=== PATIENT | male | born 1995 ===

== ENCOUNTER 2017-07-26 23:01 | Emergency (ER) | payer OTHER ==
[2017-07-27 05:33] VITALS: BP 124/77
--- NOTE | 2017-07-29 20:26 | ED ---
Jose E Dill Sixian, scribed for German Brooks MD on 07/27/17 at 0205 . Substance Abuse/Use - HPI Summary HPI Summary: HPI is limited due to intoxication. This patient is a 22 year old M BIBA to ED with a chief complaint of EtOH intoxication since 0 yesterday. - History Of Current Complaint Chief Complaint: EDSubstanceAbuse Stated Complaint: ETOH Time Seen by Provider: 07/26/17 23:16 Hx Obtained From: EMS - Allergies/Home Medications Allergies/Adverse Reactions: Allergies Allergy/AdvReac Type Severity Reaction Status Date / Time No Known Allergies Allergy Verified 07/26/17 23:15 Home Medications: Home Medications NK [No Home Medications Reported] 07/26/17 [History Confirmed 07/26/17] PMH/Surg Hx/FS Hx/Imm Hx Sensory History: Denies: Hx Legally Blind, Hx Deafness Infectious Disease History: No Infectious Disease History: Denies: Traveled Outside the [place] in Last 30 Days - Family History Known Family History: Positive: Unknown - pt is intoxicated - Social History Occupation: Student Alcohol Use: Weekly Substance Use Type: Reports: Other Substance Use Comment - Amount & Last Used: susan Smoking Status (MU): Light Every Day Tobacco Smoker - Additional Comments History Additional Comments: PMH is limited due to intoxication. Review of Systems - ROS Summary Review of Systems Summary: ROS is limited due to intoxication. Positive: Slurred Speech All Other Systems Reviewed And Are Negative: No Physical Exam - Summary Physical Exam Summary: PE is limited due to intoxication. Appearance: Well-appearing, Well-nourished, lying in bed comfortably Skin: Warm, dry, no obvious rash Eyes: sclera anicteric, no conjunctiva pallor ENT: mucous membranes moist, pharynx appears normal Neck: Supple, nontender Respiratory: Clear to auscultation, no signs of respiratory distress Cardiovascular: Normal S1, S2. No murmurs. Normal distal pulses in tibial and radial bilaterally. Abdomen: Soft, nontender, normal active bowel sounds present Musculoskeletal: Normal, Strength/ROM Intact Neurological: A&Ox3, slurred speech Psychiatric: affect is normal, does not appear anxious or depressed Triage Information Reviewed: Yes Vital Signs On Initial Exam: Initial Vitals Pulse Pulse Ox 64 90 07/26/17 23:11 07/26/17 23:11 Vital Signs Reviewed: Yes Diagnostics - Vital Signs Vital Signs Temp Pulse Resp BP Pulse Ox 07/27/17 00:00 68 23 96 07/26/17 23:45 65 17 95/58 94 07/26/17 23:15 61 101/65 96 07/26/17 23:13 97.2 F 76 16 147/70 95 07/26/17 23:11 64 90 - Laboratory Lab Statement: Any lab studies that have been ordered have been reviewed, and results considered in the medical decision making process. Course/Dx - Diagnoses Provider Diagnoses: Alcohol intoxication delirium Discharge - Sign-Out/Discharge Documenting (check all that apply): Discharge/Admit/Transfer - Discharge Plan Condition: Improved Disposition: HOME Patient Education Materials: Abuse of Alcohol (ED) Referrals: [facility] - Venkatesh HUERTA [Primary Care Provider] - Additional Instructions: RETURN TO THE EMERGENCY DEPARTMENT FOR CHANGING OR WORSENING SYMPTOMS. - Billing Disposition and Condition Condition: IMPROVED Disposition: HOME The documentation as recorded by the Jose E sherwood Sixian accurately reflects the service I personally performed and the decisions made by me, German Brooks MD.
== END 2017-07-27 05:49 | disposition home or self-care (01) ==
LOC: ED 23:01
DX: F10.121 Alcohol abuse with intoxication delirium (principal); F17.200 Nicotine dependence, unspecified, uncomplicated
CPT/HCPCS: 99283